=== PATIENT | female | born 1995 | race Caucasian/White ===

== ENCOUNTER 2025-05-31 18:50 | Emergency (ER) | payer BC, SELFPAY ==
[2025-05-31 19:02] VITALS: BP 160/98
--- NOTE | 2025-05-31 19:57 | ED.GENMED ---
History of Present Illness
General
Chief Complaint: Weakness
Source: patient
Exam Limitations: none
Time Seen by Provider: 05/31/25 19:39
History of Present Illness
History of Present Illness:
29-year-old female presents with worsening weakness and numbness with some throbbing discomfort in the right lower leg. She describes that her leg looks smaller than it thickly does. She has trouble moving her ankle at times. She also notes
ongoing discoordination of the right arm. She states today was more noticeable when she was having trouble typing with the right arm. She denies headache or double vision. She does note a history of elevated prolactin levels. She had an MRI of
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 She has repeat MRI scheduled for next month. No shortness of breath. No abdominal pain. She does note irregular menstrual cycle as well with bleeding every
2 weeks for the past 2 months. She denies a fever but had night sweats last evening. She noted a rash on her face 2 months ago and this for started as well as 1 in her abdomen that look like hives but these have since resolved. No known tick
bites. No other complaints at this time
Past History
Past History
ED Past Medical History: None
ED Past Surgical History: Tonsilectomy
Social History
Tobacco: Non-smoker
Alcohol: Occasional
Personal: Single
Living: with family
Family History
Family History: Other (Noncontributory)
Phy Exam
Physical Exam
Physical Exam:
General: Well-appearing female no acute respiratory distress
HEENT: Normal cephalic atraumatic
Heart: Regular rate and rhythm
Lungs: Clear no wheeze
Abdomen is soft nontender
Neurologic exam: Alert and oriented no facial asymmetry good strength to the upper and lower extremities bilateral patellar reflexes are 2+ bilateral Achilles reflexes 2+ no deficit noted
Skin is warm no rash
Course
Orders/Labs/Results
Orders:
Orders
05/31/25 19:54
CT Head W/o Iv Contrast Urgent
Comment:
Reason For Exam: right sided weakness
05/31/25 19:55
Test Result ONCE
05/31/25 20:03
Complete Blood Count/With Diff Urgent
Comprehensive Metabolic Panel Urgent
Ehrlichia/Anaplasma by PCR [S] Urgent
HCG, Serum Qualitative Screen Urgent
Lyme Progressive Urgent
[facility] Spotted Fever IgG&IgM [S] Urgent
Blood Parasites Urgent
CECILY Source: Blood/Venous
Specimen Description:
Abnormal Lab Results
05/31/25
20:03
RDW 14.7 H %
(11.5-14.5)
Total Protein 9.1 H g/dl
(6.3-8.2)
Albumin 5.4 H g/dl
(3.5-5.0)
05/31/25 20:03
05/31/25 20:03
Vital Signs
Initial and Last Documented VS:
Initial Vital Signs
Temp Pulse Resp BP Pulse Ox
98.0 F 96 20 160/98 99
05/31/25 19:02 05/31/25 19:02 05/31/25 19:02 05/31/25 19:02 05/31/25 19:02
Last Documented Vital Signs
Temp Pulse Resp BP Pulse Ox
98.0 F 96 20 160/98 99
05/31/25 19:02 05/31/25 19:02 05/31/25 19:02 05/31/25 19:02 05/31/25 20:00
MDM/Problems Addressed
Differential Diagnosis Includes:
Patient with progressively worsening weakness, numbness, dysfunction of the right leg and right arm. No objective findings on exam. She did note a rash at the onset of her symptoms. Question possible tickborne illness. Will order tickborne
illness profile. Will check labs given intermittent bleeding to ensure that her blood count is stable. Also order CT of the head given the right sided subjective dysfunction.
*Pulse Oximetry
SaO2: 99
Oxygen Mode of Delivery: Room air
Patient hypoxic: no
*Critical Care Note
Total Time (30-74mins, 75-104mins- exclusive of procedures): Not Applicable
Update Note
Update Note:
Work appear unremarkable with negative CT of the head. Etiology of symptoms somewhat unclear but patient is stable no indication for admission. She will receive a call if her tickborne illness panel is positive. She will continue to follow-up
with neurology as planned. Return precautions were given
ED Attending Note
-
Portions of this chart may have been created with voice recognition software.� Occasional wrong word or��sound alike� substitutions may have occurred due to the inherent limitations of voice recognition software.
Discharge Plan
Departure
Patient Disposition: Home (Routine Discharge)
Date of Disposition: 05/31/25
Time of Disposition: 22:13
Patient with high blood pressure during this ER visit?: No
Discharge Problem:
Leg paresthesia
Prescriptions:
No Action
Control Pill
1 tab PO DAILY
prednisone 20 MG tablet
40 mg PO DAILY Qty: 6 0RF
Referrals:
Kelsey Mulligan DO [Family Provider, Family Practice]
Activity Restrictions/Additional Instructions:
Please continue to follow-up with your doctors as planned. Return here for worsening symptoms otherwise. You should receive a call if any of your tickborne illness panel is positive
Interventions
Interventions:
*General Assessment Last Done: 05/31/25 19:02
ED- Cardiac Assessment Last Done: 05/31/25 19:45
ED- Neurological Assessment Last Done: 05/31/25 19:45
ED- Pulmonary Assessment Last Done: 05/31/25 19:45
Discharge Date and Time
Print Language: KHMER
[2025-05-31 20:17] LABS: Hematocrit 38.7 % (37.0-47.0); Hemoglobin 12.9 g/dL (12.0-16.0); Mean Corp Hgb Conc. 33.3 g/dL (33.0-37.0); Mean Corpuscular Volume 86.8 fL (81.0-99.0); Nucleated Red Blood Cells % 0 %; Platelet Count 329 10^3/uL (130-400); Red Cell Dist. Width 14.7 % (11.5-14.5)
[2025-05-31 20:29] LABS: HCG, Serum Qualitative Screen Negative
[2025-05-31 20:33] LABS: ALT (SGPT) 23 U/L (0-35); AST (SGOT) 29 U/L (14-36); Albumin 5.4 g/dl (3.5-5.0); Alkaline Phosphatase 47 U/L (38-126); Blood Urea Nitrogen 12 mg/dl (7-17); Calcium 10.1 mg/dl (8.4-10.2); Carbon Dioxide 24 mmol/L (22-30); Chloride 101 mmol/L (98-107); Glucose 89 mg/dl (70-99); Potassium 3.9 mmol/L (3.5-5.1); Sodium 135 mmol/L (135-145); Total Protein 9.1 g/dl (6.3-8.2); eGFR > 60.00
[2025-05-31 22:21] VITALS: BP 116/68
[2025-06-01 10:58] LABS: Lyme Antibody Screen, EIA Negative (Negative)
== END 2025-05-31 22:22 | disposition home or self-care (01) ==
LOC: EMR 18:50
PROVIDERS: Physician Assistant; EMERGENCY PHYSICIAN Student in an Organized Health Care Education/Training Program; FAMILY PHYSICIAN Family Medicine
DX: R20.2 Paresthesia of skin (principal); R53.1 Weakness
CPT/HCPCS: 99284; 70450; 80053; 84703; 85025; 86618; 86757; 87015; 87207; 87468; 87484; 87798